=== PATIENT | female | born 1945 | race Two or more races ===

== ENCOUNTER 2025-04-18 14:55 | Inpatient (IN) | payer MEDICAID, SELFPAY ==
[2025-04-18] VITALS (9 sets, daily range): BP systolic 156–210; BP diastolic 90–111; PULSE 67–82; RESP 15–96; TEMP 36–37.2; O2SAT 94–96; BMI 31.3; BMI 25.4
--- NOTE | 2025-04-18 15:08 | XR_ITS ---
Examination: CT brain head without contrast. 2-D sagittal coronal reconstructions Date and time of exam:April 18, 2025, 1513 hrs., Comparison August 12, 2009. Indications: Stroke alert, onset focal neurologic deficit today CTDI: vol (mGy):47.8 DLP: (mGycm):919 Technique: Multiple CT axial sections of the brain have been obtained, 5 mm slice thickness. Contrast has not been administered. 2-D sagittal, coronal reconstructions have been obtained Low dose protocols were performed. One or more of the following dose reduction techniques were used; automated exposure control, adjustment of the mA and/or KV according to patient size, use of iterative reconstruction technique. Findings: No significant ventricular enlargement. Intra-axial or extra-axial hemorrhage density is not seen. No mass effect or midline shift Basal cisterns are not remarkable. Fourth ventricle is midline. Cranial vault intact. Impression: Negative for acute hemorrhage, mass effect or midline shift
--- NOTE | 2025-04-18 15:08 | XR_ITS ---
Examination: CTA carotids with intravenous contrast CTA brain, head with intravenous contrast. 2-D sagittal, coronal reconstructions. 3-D reconstructions. Exam date and time: April 18, 2025, 1530 hrs. Indications: Stroke alert, onset focal neurologic deficit today CTDI: vol (mGy) 29.6 DLP: (mGycm) 183 Technique: Multiple CTA axial brain, head carotid images post intravenous contrast injection 100 cc, [id number]. 2-D sagittal, coronal reconstructions. 3-D reconstructions, 3-D post processing including vascular maximum intensity projection images. Low dose protocols were performed. One or more of the following dose reduction techniques were used; automated exposure control, adjustment of the mA and/or KV according to patient size, use of iterative reconstruction technique. Findings: Multiple bilateral thyroid nodules No visualized pulmonary artery emboli. No significant stenoses common carotid arteries carotid bifurcations or internal carotid arteries. Dominant left vertebral artery in the neck with no critical stenoses Intracranial vertebral arteries basilar artery and posterior cerebral branches fill with no large vessel occlusions M1 segments middle cerebral arteries middle cerebral artery trifurcation vessels anterior cerebral arteries fill with no large vessel occlusions. Impression: No significant neck arterial stenoses. No cerebral large vessel arterial occlusions or thrombus
--- NOTE | 2025-04-18 15:08 | EKG_ITS ---
[facility] Test Date: 2025-04-18 Pat Name: NARA RASMUSSEN Department: Room: - Gender: Female Padder: : 1945 Requested By: Merritt Mayorga Order Number: [id number] Reading MD: Merritt Mayorga Measurements Intervals [place] Rate: 79 P: 29 TX: 179 QRS: -46 QRSD: 96 T: 48 QT: 359 QTc: 412 Interpretive Statements SINUS RHYTHM LEFT ANTERIOR FASCICULAR BLOCK [QRS AXIS <= -45, QR IN I, RS IN II] VOLTAGE CRITERIA FOR LVH [MEETS CRITERIA IN ONE OF: R(aVL), S(V1), R(V5), R(V5/V6)+S(V1)] NONSPECIFIC T-WAVE ABNORMALITY Compared to ECG 09/07/2023 10:28:35 Left anterior fascicular block now present Left-axis deviation no longer present T-wave abnormality still present /store/S0/[id number].pdf
--- NOTE | 2025-04-18 15:08 | XR_ITS ---
Examination: AP chest single view Technique one AP portable upright chest single view Date and time: April 18, 2025, 1548 hrs., Comparison August 12, 2009. Indications: Stroke alert Findings: Mild heart failure. Moderate enlargement cardiac contour. Prominent vascular congestion with early septal edema at the lung bases Impression: Mild heart failure.
--- NOTE | 2025-04-18 15:09 | PD.EDNEURO ---
Neuro Symptoms Deficit-RME/HPI General Chief Complaint: Neuro Symptoms/Deficit Stated Complaint: CXP/DIZZY/BURRED VISION/NAUSEA ON/OFF SINCE 1100 Time Seen by Provider: 04/18/25 15:08 Arrival date/time: 04/18/25 14:55 RME / HPI RME / HPI Narrative: 80-year-old female patient with significant history of hypertension diabetes mellitus, currently not taking any blood thinner, came in for evaluation regarding sudden onset of dizziness off balance blurry vision severity moderate. Last well-known time was 11:00 this morning. Patient also complained of left-sided chest pain which according to the patient going away already. Denies any fall denies any fever denies any other complaints. Patient is able to ambulate however I noticed some limping. Denies any upper extremity weakness. Related Data Home Medications ?Medication ?Instructions ?Recorded ?Confirmed atorvastatin 20 mg tablet 20 mg PO QPM 09/07/23 11/29/23 latanoprost 0.005 % eye drops 1 drp ophthalmic (eye) QDAY 09/07/23 11/29/23 (Xalatan) losartan 50 mg tablet 50 mg PO QDAY 09/07/23 11/29/23 metformin 500 mg tablet,extended 500 mg PO BID 09/07/23 11/29/23 release 24 hr hydroxyzine HCl 25 mg tablet 25 mg PO HS 11/29/23 11/29/23 Allergies Allergy/AdvReac Type Severity Reaction Status Date / Time No Known Allergies Allergy Verified 04/18/25 15:02 Review of Systems Review of Systems Narrative Review of Systems: Review of system reviewed and within normal limits except mentioned in HPI ED Exam Narrative Physical exam: VITAL SIGNS: Reviewed. GENERAL APPEARANCE: Alert and interactive, follows commands, no acute distress, HEAD AND FACE: Non-traumatic. ENT: PERRL, pink conjunctivitis, eyelid no trauma, Mucous membrane moist. NECK: Supple, nontender, no nuchal rigidity. CHEST: No tenderness, no crepitus, no paradoxical movement, no retractions. LUNGS: Clear, well ventilated, symmetric, no rales, no wheezing, no ronchi, no stridor, good breath sounds bilaterally. HEART: Regular rate, regular rhythm, no murmur, no gallops. ABDOMEN: Soft, positive bowel sounds, nondistended, no guarding, nontender, no rebound, no masses, RECTAL: Deferred. GENITAL: Deferred. NEUROLOGICAL: Gross motor function intact sensory function intact, Appropriate for age. MUSCULOSKELETAL: low back nontender, full range of motion. EXTREMITIES: Nontender, full range of motion. SKIN: Color pink, dry, no rash, no lacerations, no abrasions, no contusions. LYMPHATICS: Deferred. Course Quality Measures none Orders Category Date Time Status Bedside Blood Glucose NOW Care 04/18/25 15:08 Completed COVID-19 Screening Questionnaire NOW Care 04/18/25 17:34 Ordered Lunchroom Worker NOW Care 04/18/25 15:08 Active Continuous Pulse Oximetry NOW Care 04/18/25 15:08 Completed Decision to Admit X1 Care 04/18/25 17:34 Ordered EKG (ED ONLY) *Do not use* NOW Care 04/18/25 15:08 Completed In and Out Catheter NEEDED Care 04/18/25 15:08 Active Insert IV NOW Care 04/18/25 15:08 Active NIH Stroke Scale now Care 04/18/25 15:08 Active NPO NOW Care 04/18/25 15:08 Active Nurse Swallow Screen x1 Care 04/18/25 15:08 Active Consult to Neurology / Tele-Neurology Routine Cons 04/18/25 15:[address] angio stroke protocol Stat Exams 04/18/25 15:[address] stroke protocol Stat Exams 04/18/25 15:08 Completed EKG (ED Only) Stat Exams 04/18/25 15:08 Draft XR chest 1V portable Stat Exams 04/18/25 15:08 Completed CBC Stat Lab 04/18/25 15:17 Completed Comprehensive Metabolic Panel Stat Lab 04/18/25 15:17 Completed Drug Screen,Urine Stat Lab 04/18/25 16:00 Completed HCG Titer if Positive Stat Lab 04/18/25 15:17 Completed Magnesium Stat Lab 04/18/25 15:17 Completed Partial Thromboplastin Time Stat Lab 04/18/25 15:17 Completed Prothrombin Time with INR Stat Lab 04/18/25 15:17 Completed Troponin I Stat Lab 04/18/25 15:17 Completed Urinalysis, C/S if Indicated Stat Lab 04/18/25 16:00 Completed Aspirin [Ecotrin] Med 04/18/25 16:30 Discontinued 81 mg PO X1 ONE Labetalol IV [Trandate IV] Med 04/18/25 15:08 Active 10 mg IVP Q15M PRN Ondansetron Inj [Zofran Inj] Med 04/18/25 15:08 Active 4 mg IVP Q4HR PRN Oxygen Delivery NOW RT 04/18/25 15:08 Active Vital Signs Vital signs: Vital Signs Temperature 98.2 F 04/18/25 15:05 Pulse Rate 82 04/18/25 15:05 Respiratory Rate 18 04/18/25 15:05 Blood Pressure 192/106 H 04/18/25 15:05 Pulse Oximetry (%) 95 04/18/25 15:05 Oxygen Delivery Method Room Air 04/18/25 15:05 Neuro Symptoms / Deficit MDM Narrative MDM Narrative:: 80-year-old female patient with significant history of hypertension diabetes mellitus, currently not taking any blood thinner, came in for evaluation regarding sudden onset of dizziness off balance blurry vision severity moderate. Last well-known time was 11:00 this morning. Patient also complained of left-sided chest pain which according to the patient going away already. Denies any fall denies any fever denies any other complaints. Patient is able to ambulate however I noticed some limping. Denies any upper extremity weakness. Stroke alert was initiated right away on my initial evaluation. EKG showed sinus rhythm, ventricular rate of 79 bpm, no ST segment elevation depression noted. I was able to talk to teleneurologist, who told me that patient is a candidate for TNKase. Patient needs to be given 81 mg of aspirin. And then admit for stroke workup Plan of care discussed with family, who agrees to be admitted for further management. Spoke with hospitalist, who admitted the patient. Patient data External records reviewed:: None Clinical information provided by:: patient Social determinants that could affect healthcare access:: none Patient has the following chronic illnesses:: Hypertension diabetes mellitus How is presenting disease/condition affected by chronic disease/condition?: exacerbated by Evaluation data The following diagnostics were reviewed and interpreted by me:: lab results and radiology exam(s) Lab and/or radiology exams considered but not ordered:: None Interpretation Summary: CT scan of the head came back unremarkable CTa head and neck, all came back normal. Laboratory workup all came back normal except for slightly elevated troponin of 0.053. On my initial evaluation patient is not having any chest pain. Currently patient is not having any chest pain. Medications / Prescriptions Medications or Prescriptions considered but not ordered:: None Medication administrations:: Medication Administration History Labetalol HCl (Labetalol Inj 5 Mg/Ml Vial 20 Ml) 10 mg IVP Q15M PRN PRN Reason: HYPER Ondansetron HCl (Ondansetron Inj 2 Mg/Ml Inj 2 Ml) 4 mg IVP Q4HR PRN PRN Reason: NAUSEA OR VOMITING Stop: 05/18/25 15:07 Discontinued Medications Aspirin (Aspirin Ec 81 Mg Tabec) 81 mg PO X1 ONE Stop: 04/18/25 16:31 Last Admin: 04/18/25 17:04 Dose: 81 mg Documented By: DELICIA Aspirin Consultations Consultation(s) initiated? (list below): No Diagnosis Neuro Differential Diagnosis: cerebrovascular accident and transient cerebral ischemia Most likely diagnosis given after review of the tests above:: Strokelike symptoms Admission Indicated Admission indicated?: indicated Admission Request Was there a request for admission?: Yes Admission Attestation Admission request attestation: Discussed case with [Dr Evans] from Hospitalist service regarding admission. Discussed patients ED course, exam findings, labs, and radiology results. The Hospitalist [agrees to accept the patient for admission. Disposition Plan Disposition Plan: Admit Discharge Plan Plan Patient Disposition: Admit Acute Care w/in Hospital Discharge Disposition comment: Stable Prescriptions/Referrals Prescriptions/Med Rec: No Action losartan 50 mg Tablet 50 mg PO QDAY latanoprost [Xalatan] 0.005 % Drops 1 drp OPHTHALMIC (EYE) QDAY atorvastatin 20 mg Tablet 20 mg PO QPM metformin 500 mg Tablet Extended Release 24 Hr 500 mg PO BID hydroxyzine HCl 25 mg Tablet 25 mg PO HS Referrals: Regis Uribe PA-C [Primary Care Provider] - In 1 week Problem List Clinical Impression: Stroke-like symptom Patient/Caregiver Discharge Instructions Print Language: Luxembourgish Stand Alone Forms: [employer] Award Info., Patient Portal Info Letter
[2025-04-18 15:24] LABS: Basophils # (Auto) 0.1 Thou/mm3 (0.0-0.2); Basophils % (Auto) 1 % (0-2.5); Eosinophils # (Auto) 0.1 Thou/mm3 (0.0-0.5); Eosinophils % (Auto) 1 % (0-10); Hematocrit 42.4 % (36.0-46.0); Hemoglobin 13.6 g/dL (12.0-16.0); Immature Granulocytes Auto 0.05 Thou/mm3 (0.00-0.00); Lymphocytes # (Auto) 1.7 Thou/mm3 (1.0-4.8); Lymphocytes % (Auto) 21 % (10-50); Mean Corpuscular HGB Conc 32.1 g/dl (31.0-37.0); Mean Corpuscular Hemoglobin 27.8 pg (25.0-35.0); Mean Corpuscular Volume 87 fL (80-100); Monocytes # (Auto) 0.7 Thou/mm3 (0.0-0.8); Monocytes % (Auto) 8 % (0-12); Neutrophils # (Auto) 5.4 Thou/mm3 (1.8-7.7); Neutrophils % (Auto) 68 % (37-80); Nucleated Red Blood Cell # 0.00 Thou/mm3 (0.00-0.00); Nucleated Red Blood Cell % 0 /100 WBC (0); Platelet Count 185 Thou/mm3 (140-440); RDW Standard Deviation 42.3 fL (36.4-46.3); Red Blood Count 4.89 Miln/mm3 (4.00-5.20); White Blood Count 8.0 Thou/mm3 (3.6-11.0)
[2025-04-18 15:41] LABS: HCG Titer if Positive Negative; INR 1.0 (0.9-1.3); Partial Thromboplastin Time 26.5 Seconds (22.0-36.0); Prothrombin Time 10.3 Seconds (9.0-12.2)
[2025-04-18 15:57] LABS: Alanine Aminotransferase 17 U/L (10-49); Albumin, Serum 4.7 gm/dL (3.4-4.8); Albumin/Globulin Ratio 1.7 (1.2-2.2); Alkaline Phosphatase 78 U/L (46-116); Anion Gap 8 (7-16); Aspartate Amino Transferase 23 U/L (0-34); BUN/Creatinine Ratio 17 Ratio (12-20); Bilirubin,Total 0.7 mg/dL (0.3-1.2); Blood Urea Nitrogen 12 mg/dL (9-23); Calcium 9.5 mg/dL (8.3-10.6); Calcium (Corrected) 9.5 mg/dL (8.5-10.1); Carbon Dioxide 29.2 mMol/L (20.0-31.0); Chloride 100 mMol/L (98-107); Creatinine (Component) 0.7 mg/dL (0.6-1.3); Estimated Creatinine Clearance 64.9 mL/min (>60); Globulin 2.7 gm/dL (2.3-3.5); Glucose 217 mg/dL (74-106); Magnesium 2.2 mg/dL (1.6-2.6); Osmolality,Calculated 280 (275-295); Potassium 4.9 mMol/L (3.4-5.1); Sodium 137 mMol/L (136-145); Total Protein 7.4 gm/dL (5.7-8.2); eGFR > 60 See Note
[2025-04-18 15:59] LABS: Troponin I 0.053 ng/mL (0.0-0.045)
--- NOTE | 2025-04-18 16:06 | ESCONSULT_ITS ---
Tele Neuro Consultation Consultation Date 04/18/25 Most Recent Vital Signs Last Vital Signs Temp 98.2 F 04/18/25 15:05 Pulse 77 04/18/25 15:40 Resp 15 04/18/25 15:40 BP 192/106 H 04/18/25 15:05 Pulse Ox 95 04/18/25 15:05 O2 Del Method Room Air 04/18/25 15:05 Laboratory-Coagulation Panel PT 10.3 Seconds (9.0-12.2) 04/18/25 15:17 INR 1.0 (0.9-1.3) 04/18/25 15:17 APTT 26.5 Seconds (22.0-36.0) 04/18/25 15:17 Consultation Narrative [facility] Patient Name:???NARA RASMUSSEN Date of :???1945 Identification Number:??? Date of Service:???04/18/2025 15:09:26 Diagnosis:?H53.8 - Blurred Vision ?R26.81 - Unsteady gait Impression: ?Onset of chest pain, dizziness, and blurred vision which does not improve with either eye covered in the in setting of severe hypertension. There are no persistent localizing neurological deficits on exam. Clinical presentation is most consistent with hypertensive emergency, though posterior circulation ischemia is also possible. IV thrombolysis was not recommended as her BP was >185/110 during my evaluation, as well as being outside treatment time window at the completion of CT head and NIHSS score testing. ? ?Recommendations: ?- Gradual BP reduction (~15% in first 24 hours) ?- ASA 81mg daily ?- MRI brain to evaluate for PRES versus ischemia ?- Chest pain eval per ED/primary team Our recommendations are outlined below. Recommendations: ? Stroke/Telemetry Floor ? Neuro Checks ? Bedside Swallow Eval ? DVT Prophylaxis ? IV Fluids, Normal Saline ? Head of Bed 30 Degrees ? Euglycemia and Avoid Hyperthermia (PRN Acetaminophen) ? Initiate or continue Aspirin 81 MG daily Sign Out: ? Discussed with Emergency Department Provider Advanced Imaging: Advanced imaging has been ordered. Results pending. Metrics: Last Known Well: 04/18/2025 11:00:00 Dispatch Time: 04/18/2025 15:09:26 Arrival Time: 04/18/2025 14:55:00 Initial Response Time: 04/18/2025 15:12:26Symptoms: dizziness. Initial patient interaction: 04/18/2025 15:18:19 NIHSS Assessment Completed: 04/18/2025 15:26:16Patient is not a candidate for Thrombolytic. Thrombolytic Medical Decision: 04/18/2025 15:26:35Patient was not deemed candidate for Thrombolytic because of following reasons: LKW outside 4.5 hr window. . other diagnosis suspected hypertensive emergency. CT Head: I personally reviewed all the CT images that were available to me and it showed: no acute pathology Primary Provider Notified of Diagnostic Impression and Management Plan on: 04/18/2025 16:00:29 History of Present Illness:Patient is a 80 year old Female. Patient was brought by private transportation with symptoms of dizziness. Patient is an 80-year-old woman presenting to the ED due to persistent left- sided chest pain and dizziness starting at 11am today. She reports that it feels like she is drunk and she also has blurred vision and nausea. She denies lateralized weakness/numbness, double vision, headache, speech/language changes. She denies recent illnesses or medication changes. She denies prior history of similar symptoms. She was markedly hypertensive on ED arrival. She was able to ambulate independently. Past Medical History: ?Hypertension ?Diabetes Mellitus ?Hyperlipidemia ?There is no history of Atrial Fibrillation ?There is no history of Stroke ?There is no history of Seizures Medications: No Anticoagulant use? No Antiplatelet use Reviewed EMR for current medications Other Medications Pertinent To Assessment Include: losartan, atorvastatin, metformin, hydroxyzine Allergies:? NKDA Social History: Smoking: No Alcohol Use: No Drug Use: No Family History: There is no family history of premature cerebrovascular disease pertinent to this consultation ROS : 14 Points Review of Systems was performed and was negative except mentioned in HPI. Past Surgical History: There Is No Surgical History Contributory To Today?s Visit Examination: BP(201/143),?Pulse(77),?Blood Glucose(217) 1A: Level of Consciousness - Alert; keenly responsive?+ 0 1B: Ask Month and Age - Both Questions Right?+ 0 1C: Blink Eyes & Squeeze Hands - Performs Both Tasks?+ 0 2: Test Horizontal Extraocular Movements - Normal?+ 0 3: Test Visual Chaves - No Visual Loss?+ 0 4: Test Facial Palsy (Use Grimace if Obtunded) - Normal symmetry?+ 0 5A: Test Left Arm Motor Drift - No Drift for 10 Seconds?+ 0 5B: Test Right Arm Motor Drift - No Drift for 10 Seconds?+ 0 6A: Test Left Leg Motor Drift - No Drift for 5 Seconds?+ 0 6B: Test Right Leg Motor Drift - No Drift for 5 Seconds?+ 0 7: Test Limb Ataxia (FNF/Heel-Benjamin) - No Ataxia?+ 0 8: Test Sensation - Normal; No sensory loss?+ 0 9: Test Language/Aphasia - Normal; No aphasia?+ 0 10: Test Dysarthria - Normal?+ 0 11: Test Extinction/Inattention - No abnormality?+ 0 NIHSS Score:?0 NIHSS Free Text :?non-sustained nystagmus on right horizontal gaze. Blurred vision, does not improve with either eye covered. No visual field loss Pre-Morbid Modified Wendell Scale: 0 Points = No symptoms at all Spoke with :?Merritt CAIN This consult was conducted in real time using interactive audio and video technology. Patient was informed of the technology being used for this visit and agreed to proceed. Patient located in hospital and provider located at home/office setting. Patient is being evaluated for possible acute neurologic impairment and high probability of imminent or life-threatening deterioration. I spent total of 57 minutes providing care to this patient, including time for face to face visit via telemedicine, review of medical records, imaging studies and discussion of findings with providers, the patient and/or family. Dr Lila Sweet [facility] For Inpatient follow-up with [facility] physician please call [facility] at . As we are not an outpatient service for any post hospital discharge needs please contact the hospital for assistance. If you have any questions for the [facility] physicians or need to reconsult for clinical or diagnostic changes please contact us via [facility] at . Signature :Blaze Sweet
[2025-04-18 16:09] LABS: Collection Type, Urine Clean Catch; Squamous Epithelial Cell,Urine 0 /hpf (0-5)
[2025-04-18 16:18] LABS: Bilirubin,Urine Negative (Negative); Blood,Urine Negative (Negative); Clarity,Urine Clear (Clear/Hazy); Color,Urine Colorless (Lt Yel-Yel); Culture Indicated,Urine Not Indicated; Glucose, Urine Negative (Negative); Ketones,Urine Negative (Negative); Leukocyte Esterase,Urine Negative (Negative); Nitrite,Urine Negative (Negative); PH,Urine 7.5 (5.0-7.0); Protein,Urine Negative (Neg - Trace); RBC,Urine 1 /hpf (0-3); Specific Gravity,Urine 1.021 (1.001-1.035); Urobilinogen,Urine Negative mg/dL (0.0-1.0); WBC,Urine 1 /hpf (0-5)
[2025-04-18 16:24] LABS: Amphetamine/Methamp Scrn,U Negative (Negative); Barbiturate Screen,Urine Negative (Negative); Benzodiazepines Screen,Urine Negative (Negative); Benzoylecgonine Screen, Ur Negative (Negative); Fentanyl Screen,Urine Negative (Negative); Opiate Screen,Urine Negative (Negative); THC Screen,Urine Negative (Negative)
[2025-04-18] MEDS: ASPIRIN EC 81 MG TABEC PO (17:04)
[2025-04-18] MEDS: LABETALOL INJ 5 MG/ML VIAL 20 ML 10 MG IVP (18:24)
--- NOTE | 2025-04-18 18:27 | ECHO_ITS ---
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 16 - 28 cm?/m? Ascending Aorta Diameter 3.2 cm M-MODE AV Cusp Separation MM 1.8 cm DOPPLER AV Peak Velocity 105.0 cm/s AV Peak Gradient 4.4 mmHg AV Mean Gradient 3.0 mmHg AV Velocity Time Integral 22.5 cm LVOT Peak Velocity 79.9 cm/s LVOT Peak Gradient 2.6 mmHg LVOT Velocity Time Integral 18.3 cm LVOT Cardiac Index 2038.7 cm?/min?m? AV Area Cont Eq vti 2.3 cm? AV Area Cont Eq pk 2.2 cm? MV Area PHT 4.6 cm? Mitral E Point Velocity 36.7 cm/s Mitral A Point Velocity 73.7 cm/s Mitral E to A Ratio 0.5 LV E' Lateral Velocity 8.7 cm/s Mitral E to LV E' Lateral Ratio 4.2 LV E' Septal Velocity 6.7 cm/s Mitral E to LV E' Septal Ratio 5.4 TR Peak Velocity 165.5 cm/s TR Peak Gradient 11.0 mmHg PV Peak Velocity 48.2 cm/s PV Peak Gradient 0.9 mmHg FINDINGS Left Ventricle Normal left ventricular size, wall thickness, systolic function.There is global left ventricular hypokinesis. There is grade I diastolic dysfunction of the left ventricle (impaired relaxation pattern). The ejection fraction is visually estimated at 50 %. Right Ventricle The right ventricle is normal in size and systolic function. Left Atrium The left atrial cavity size is mildly increased. Right Atrium The right atrium is normal by two-dimensional imaging, color flow and Doppler imaging with no structural abnormalities, no thrombus formation present. Atrial Septum The interatrial septum appears normal with no evidence of a shunt. Aorta The aorta is normal by two-dimensional, color flow and Doppler interrogation. Mitral Valve Mitral annular calcification. Aortic Valve Aortic valve sclerosis without stenosis. [id number] aortic valve regurgitation. Tricuspid Valve The tricuspid valve is normal by two-dimensional, color flow and Doppler interrogation. There is mild tricuspid valve regurgitation. Pulmonic Valve The pulmonic valve is not well visualized. There is no significant pulmonic valve regurgitation. Vessels The pulmonary artery appears normal. The inferior vena cava pulmonary and hepatic veins appear normal. Pericardium The pericardium is normal by two-dimensional imaging. There is no significant pericardial effusion. CONCLUSIONS Indication:CVA rule out Normal left ventricular size and function. Grade I diastolic dysunction. EF estimated at 50-55% The right ventricle is normal in size and systolic function. RVSP mildly elevated at 30-35 mm hg Mild dilated LA. mild MAC Mild Aortic valve sclerosis without stenosis. Mild aortic valve regurgitation and tricuspid regurgitation. No pericardial effusion. Consider RUBEN if high index of clinical suspicion. Roque Montalvo (Electronically Signed) Final Date: 21 April 2025 08:56
--- NOTE | 2025-04-18 18:43 | ESHP_ITS ---
<Statement entered by Sonia Zurita MD - 04/23/25 17:39> I reviewed above note and agree with findings and plans. I have also personally examined the patient with medicine team and went over assessment and plan with medical team including phd intern and resident physician. <Statement entered by Sushma Evans MD - 04/21/25 20:52> I discussed with and supervised the phd intern physician who took care of this patient. I personally saw and examined the patient and discussed the assessment and plan with the entire medicine team, including my attending Dr. Zurita, I agree with most of the assessment and plan as documented below Sushma Evans M.D. PGY-3 Disclaimer: Despite multiple revisions, due to the dictation software being used, the document bellow may not be free of grammatical errors including phonetic/typographic errors. However, this does not deter from our commitment to providing health care in the patient's best interest in mind. Documentation for date of: 04/18/25 HPI History of Present Illness Chief complaint: dizziness, gait instability History of present illness: Ms. Aguilar is an 80 year old woman who has a hx of HTN and T2DM not on insulin, who presented with c/c L chest pain and dizziness associated with blurred vision and gait instability. She states that she awoke this morning and was feeling fine. At 11AM she states that she started to feel like something was wrong. she felt strange and endorses having dizziness, feeling like she may fall down due to some weakness/ instability in her legs. She states that she has never had a feeling like this before so she sat down. she was unsure of what was causing her symptoms and was reluctant to come to the hospital. She states that she is unsure about whether she remembered to take her morning medications today. Her primary care provider is at [facility] She is acompanied by her daughter ROS Denies fevers, chills, nausea, vomiting endorses dizziness, blurred vision, gait instability, headache PMH: HTN, T2DM Meds Atorvastatin 20 mg qhs, metformin 500mg qd, losartan 50 surgical hx : prior abdominal surgery and bilateral cataract surgery social hx: lives alone and is independent of adl and idls ED course stroke alert activated VSS notable for elevated BP 192/106, hr wnl, rr wnl, afebrile EKG with nl sinus rhythm Labs notable for hgb a1c 7.6, troponin 0.053, triglycerides 418, HDL 37, LDL cant be calculated because>>triglycerides, tsh wnl, UA bland, UTox negative Pertinent imaging: - CT head Negative for acute hemorrhage, mass effect or midline shift - CTA head and neck No significant neck arterial stenoses. No cerebral large vessel arterial occlusions or thrombus Tx - ASA 81 - tele neuro consulted : no thrombinolytics indicated, outside the window. Review of Systems Review of Systems Narrative Review of Systems: as per hpi Past Medical History Surgical History OTHER SURGICAL HX: abdominal surgery, and eye surgery bilaterally for cataracts. Exam Vital Signs Temp Pulse Resp BP Pulse Ox O2 Del Method 98.7 F 81 15 163/96 H 95 Room Air 04/18/25 18:30 04/18/25 18:30 04/18/25 18:30 04/18/25 18:30 04/18/25 18:30 04/18/25 18:30 Narrative Exam GENERAL: no acute distress, AAO x3, comfortably laying in bed HEENT: Head AT/ NC. Mucous membranes moist. PERRL. (pt reports increased lacrimation 2/2 cataract surgeries ) NECK: Supple, no lymphadenopathy, no carotid bruits. CARDIOVASCULAR: RRR. Normal S1/S2, No m/r/g. No pitting edema of bilateral LEs. RESPIRATORY: CTAB. No wheezing, rhonchi, crackles. GASTROINTESTINAL: Abdomen soft, non tender no palpable masses. Bowel sounds present MUSCULOSKELETAL:? No cyanosis or edema, no visible joint swelling. NEUROLOGICAL: CN II-XII grossly intact. No focal deficits. Sensation intact, symmetric., nl finger nose finger, nl heel knee vernon. gait was not assessed. 5/5 strength in upper and lower extremities. PSYCHIATRIC: Awake and alert, not agitated, normal mood and affect. SKIN: No obvious rashes, no jaundice, normal turgor. Results: Labs 04/18/25 15:17 04/18/25 15:17 Labs: Short CBC 04/18/25 Range/Units 15:17 WBC 8.0 (3.6-11.0) Thou/mm3 Hgb 13.6 (12.0-16.0) g/dL Hct 42.4 (36.0-46.0) % Plt Count 185 (140-440) Thou/mm3 BMP 04/18/25 15:17 Sodium 137 Potassium 4.9 Chloride 100 Carbon Dioxide 29.2 BUN 12 Creatinine 0.7 Glucose 217 H Calcium 9.5 Cardiac Enzymes 04/18/25 Range/Units 15:17 Troponin I 0.053 H* (0.0-0.045) ng/mL Liver Function 04/18/25 Range/Units 15:17 Total Bilirubin 0.7 (0.3-1.2) mg/dL AST 23 (0-34) U/L ALT 17 (10-49) U/L Alkaline Phosphatase 78 (46-116) U/L Albumin 4.7 (3.4-4.8) gm/dL Urine 04/18/25 Range/Units 16:00 Urine Color Colorless A (Lt Yel-Yel) Urine Clarity Clear (Clear/Hazy) Urine pH 7.5 H (5.0-7.0) Ur Specific [place] 1.021 (1.001-1.035) Urine Protein Negative (Neg - Trace) Urine Glucose (UA) Negative (Negative) Quality Measures Quality Measures VTE prophylaxis and stroke Suspected type of Stroke: Unknown at this time Last known well (date): 04/18/25 Last known well (time): 11:00 Tenecteplase given: Reason(s) Tenecteplase not given: Outside the time window not given Rehab services: PT evaluation ordered and Speech Language Pathology eval ordered VTE Prophylaxis: mechanical Antithrombotic by day 2:: not indicated (describe) Statin ordered: >75 y/o moderate or high intensity dose Anticoagulation ordered for A-fib or flutter (current or hx): not indicated Advance care planning discussed with:: patient and child Medications Home Medications and Allergies Home Medications ?Medication ?Instructions ?Recorded ?Confirmed ?Type atorvastatin 20 mg tablet 20 mg PO QPM 09/07/23 History latanoprost 0.005 % eye drops 1 drp ophthalmic (eye) Q DAY 09/07/23 11/29/23 History (Xalatan) losartan 50 mg tablet 50 mg PO QDAY 09/07/2311/28 History metformin 500 mg tablet,extended 500 mg PO BID 4 11/29/23 History release 24 hr hydroxyzine HCl 25 mg tablet 25 mg PO HS 11/29/23 05/0 09/22 History Allergies Allergy/AdvReac Type Severity Reaction Status Date / Time No Known Allergies Allergy Verified 04/18/25 15:02 Visit Medications Acetaminophen (Acetaminophen 325 Mg Tablet) 650 mg PO Q6H PRN PRN Reason: Fever >101.5 Stop: 05/18/25 18:18 Acetaminophen (Acetaminophen Supp 650 Mg Supp) 650 mg OR Q6H PRN PRN Reason: PAIN SCALE 1-3 (mild Stop: 05/18/25 18:18 Aspirin (Aspirin Ec 81 Mg Tabec) 81 mg PO DAILY MICHELLE Stop: 05/19/25 08:59 Docusate Sodium (Docusate Sod 100 Mg Capsule) 100 mg PO QDAY PRN; Protocol PRN Reason: CONSTIPATION Stop: 05/18/25 18:18 Labetalol HCl (Labetalol Inj 5 Mg/Ml Vial 20 Ml) 10 mg IVP Q15M PRN PRN Reason: HYPER Last Admin: 04/18/25 18:24 Dose: 10 mg Ondansetron HCl (Ondansetron Inj 2 Mg/Ml Inj 2 Ml) 4 mg IVP Q4HR PRN PRN Reason: NAUSEA OR VOMITING Stop: 05/18/25 15:07 Discontinued Medications Aspirin (Aspirin Ec 81 Mg Tabec) 81 mg PO X1 ONE Stop: 04/18/25 16:31 Last Admin: 04/18/25 17:04 Dose: 81 mg Assessment & Plan Plan Ms. Aguilar is an 80 year old woman who has a hx of HTN and T2DM not on insulin, HLD, who presented with c/c L chest pain and dizziness associated with blurred vision and gait instability who was admitted for stroke rule out Dizziness and ataxia PRES vs Acute ischemic Stroke rule out DDX hypertensive emergency vs pres vs cerebellar stroke given pt symptoms , pt doesnt remember if she took bp meds, however bp could be elevated 2/2 ischemia Patient was not deemed a candidate for tPA because last known well was greater than 4.5 hours NIHSS score of 0 Dx * NCHCT Negative for acute hemorrhage, mass effect or midline shift * CTA head and neck: No significant neck arterial stenoses No cerebral large vessel arterial occlusions or thrombus * Brain MRI- pending * Echo- pending * A1c 7.6 * TSH wnl * Lipid panel, elevated triglycerides, low hdl * Every 4 hours neuro checks * Telemetry neurology consulted recommends; admission and asa 81 qd * In-house neurologist consulted: Dr. Evans, appreciate recs * Consult physical therapy * Consult speech, passed bedisde nurse swallow Tx * ASA 81 mg daily * Atorvastatin 40 mg at bedtime * APAP 650 mg every 6hrs as needed * Labetalol 10 mg every as needed for SBP greater than 220/110 * Keep euglycemic * Head a bed 30 degrees * Permissive hypertension in the first 48 hours continue to hold home antihypertensives Hypertensive emergency HTN - HOLD home meds losartan 50 - allow permissive htn in setting of CVA rule out Troponinemia - EKG with nl sinus - continue trending trops, q6hr till peaked 0.053 --> T2DM - well controlled A1c 7.6 not on insulin at home. - ISS - hold home metformin 500 xr qd - diet carb consistent HLD home dose atorvastatin 20 qhs - start atorvastatin 40 qhs given c/f stroke and elevated triglycerides on lipid panel Dispo:tele, pending mri brain Diet: carb consistent Bowel Reg: docusate prn VTE ppx: scd GI ppx: not indicated Code status: DNR/DNI Plan discussed with Dr Evans, and Dr. Yudith Bennett MD PGY1
[2025-04-18 18:52] LABS: Glucose Estimated Average 171 mg/dL (80-131); Hemoglobin A1C 7.6 % Hgb (4.8-6.0)
[2025-04-18 18:54] LABS: Cardiac Risk Estimate 4.4 RATIO (3.7-5.6); Cholesterol 163 mg/dL (132-200); HDL Cholesterol 37 mg/dL (40-60); Thyroid Stimulating Hormone 3.01 uIU/mL (0.55-4.78); Triglycerides 418 mg/dL (30-150)
[2025-04-18] MEDS: ATORVASTATIN CALCIUM 20 MG TABLET 40 MG PO (21:01)
[2025-04-18 21:18] LABS: Troponin I 0.046 ng/mL (0.0-0.045)
[2025-04-19] VITALS (7 sets, daily range): BP systolic 136–188; BP diastolic 86–98; PULSE 60–91; RESP 14–23; TEMP 36.1–36.8; O2SAT 93–98; BMI 26.2
[2025-04-19 02:17] LABS: Basophils # (Auto) 0.1 Thou/mm3 (0.0-0.2); Basophils % (Auto) 1 % (0-2.5); Eosinophils # (Auto) 0.1 Thou/mm3 (0.0-0.5); Eosinophils % (Auto) 1 % (0-10); Hematocrit 42.5 % (36.0-46.0); Hemoglobin 13.9 g/dL (12.0-16.0); Immature Granulocytes Auto 0.04 Thou/mm3 (0.00-0.00); Lymphocytes # (Auto) 2.2 Thou/mm3 (1.0-4.8); Lymphocytes % (Auto) 28 % (10-50); Mean Corpuscular HGB Conc 32.7 g/dl (31.0-37.0); Mean Corpuscular Hemoglobin 28.3 pg (25.0-35.0); Mean Corpuscular Volume 86 fL (80-100); Monocytes # (Auto) 0.8 Thou/mm3 (0.0-0.8); Monocytes % (Auto) 10 % (0-12); Neutrophils # (Auto) 4.5 Thou/mm3 (1.8-7.7); Neutrophils % (Auto) 59 % (37-80); Nucleated Red Blood Cell # 0.00 Thou/mm3 (0.00-0.00); Nucleated Red Blood Cell % 0 /100 WBC (0); Platelet Count 163 Thou/mm3 (140-440); RDW Standard Deviation 42.4 fL (36.4-46.3); Red Blood Count 4.92 Miln/mm3 (4.00-5.20); White Blood Count 7.6 Thou/mm3 (3.6-11.0)
[2025-04-19 02:36] LABS: Alanine Aminotransferase 16 U/L (10-49); Albumin, Serum 4.7 gm/dL (3.4-4.8); Albumin/Globulin Ratio 1.6 (1.2-2.2); Alkaline Phosphatase 75 U/L (46-116); Anion Gap 9 (7-16); Aspartate Amino Transferase 20 U/L (0-34); BUN/Creatinine Ratio 13 Ratio (12-20); Bilirubin,Total 0.8 mg/dL (0.3-1.2); Blood Urea Nitrogen 8 mg/dL (9-23); Calcium 9.6 mg/dL (8.3-10.6); Calcium (Corrected) 9.6 mg/dL (8.5-10.1); Carbon Dioxide 27.3 mMol/L (20.0-31.0); Chloride 103 mMol/L (98-107); Creatinine (Component) 0.6 mg/dL (0.6-1.3); Estimated Creatinine Clearance 75.8 mL/min (>60); Globulin 2.9 gm/dL (2.3-3.5); Glucose 131 mg/dL (74-106); Magnesium 2.1 mg/dL (1.6-2.6); Osmolality,Calculated 277 (275-295); Phosphorous 3.2 mg/dL (2.4-5.1); Potassium 4.1 mMol/L (3.4-5.1); Sodium 139 mMol/L (136-145); Total Protein 7.6 gm/dL (5.7-8.2); Troponin I 0.028 ng/mL (0.0-0.045); eGFR > 60 See Note
[2025-04-19 08:36] LABS: Troponin I < 0.020 ng/mL (0.0-0.045)
[2025-04-19] MEDS: ASPIRIN EC 81 MG TABEC PO (09:48)
--- NOTE | 2025-04-19 10:05 | CHAP ---
Patient was visited by the Spiritual Care Volunteer who prayed for them. (Volunteer was in the hospital 09:12-10:05)
--- NOTE | 2025-04-19 10:43 | ESPR_ITS ---
<Statement entered by Sonia Zurita MD - 04/23/25 17:40> I reviewed above note and agree with findings and plans. I have also personally examined the patient with medicine team and went over assessment and plan with medical team including medical intern and resident physician. <Statement entered by Annika Belcher MD - 04/19/25 14:26> Patient examined at bedside. Has no major complaints states that she is feeling better with resolution of her dizziness and ataxia. A1c was 7.6. Stroke workup including CT head and CTA head and neck negative. She is pending echo and brain MRI. Will continue with aspirin 81 mg daily, atorvastatin 40 mg daily, and SSI. Hypertensive emergency has resolved with stable blood pressures. Anticipate discharge next 24-48 hrs pending final imaging and neurology recommendations. The patient's management plan was discussed with my attending physician Dr. Zurita. Annika Belcher, PGY-2 Documentation for date of: 04/19/25 Subjective Subjective Interval history: Ms. Aguilar is an 80 year old woman who has a hx of HTN and T2DM not on insulin, HLD, who presented with c/c L chest pain and dizziness associated with blurred vision and gait instability who was admitted for stroke rule out 04/19/2025: Patient seen and examined at bedside, her son is present. MRI is not available on sunday. pt is pending mri and echo. neuroimaging is negative to date, pt continues to endorse some weakness/instability when walking to transfer to the toilet. no residual deficits on exam. PT evaluation states that she is independent and no further evaluation needed, independent ambulation without assistive devices. Speech Eval completed, cleared. Exam Vital Signs Temp Pulse Resp BP Pulse Ox O2 Del Method 97.7 F 78 22 H 164/97 H 95 Room Air 04/19/25 07:59 04/19/25 08:00 04/19/25 07:59 04/19/25 07:59 04/19/25 07:59 04/19/25 07:59 Narrative Exam GENERAL: no acute distress, AAO x3, comfortably laying in bed HEENT: Head AT/ NC. Mucous membranes moist. PERRL. NECK: Supple, no lymphadenopathy, no carotid bruits. CARDIOVASCULAR: RRR. Normal S1/S2, No m/r/g. No pitting edema of bilateral LEs. RESPIRATORY: CTAB. No wheezing, rhonchi, crackles. GASTROINTESTINAL: Abdomen soft, non tender no palpable masses. Bowel sounds present MUSCULOSKELETAL:? No cyanosis or edema, no visible joint swelling. NEUROLOGICAL: CN II-XII grossly intact. No focal deficits. Sensation intact, symmetric., nl finger nose finger, nl heel knee vernon. gait was assessed by pt, independent without AD 5/5 strength in upper and lower extremities. PSYCHIATRIC: Awake and alert, not agitated, normal mood and affect. SKIN: No obvious rashes, no jaundice, normal turgor. Objective Labs 04/19/25 02:04 04/19/25 02:04 Labs: Laboratory Results - last 24 hr 04/18/25 04/18/25 04/18/25 15:17 16:00 20:28 WBC 8.0 RBC 4.89 Hgb 13.6 Hct 42.4 MCV 87 MCH 27.8 MCHC 32.1 RDW Std Deviation 42.3 Plt Count 185 Neut % (Auto) 68 Lymph % (Auto) 21 [place] % (Auto) 8 Eos % (Auto) 1 Baso % (Auto) 1 Neut # (Auto) 5.4 Lymph # (Auto) 1.7 [place] # (Auto) 0.7 Eos # (Auto) 0.1 Baso # (Auto) 0.1 Immature Gran # (Auto) 0.05 H Absolute Nucleated RBC 0.00 Immature Gran % 1 H Nucleated RBC % 0 PT 10.3 INR 1.0 APTT 26.5 Sodium 137 Potassium 4.9 Chloride 100 Carbon Dioxide 29.2 Anion Gap 8 BUN 12 Creatinine 0.7 Estim Creat Clear Calc 64.9 eGFR > 60 BUN/Creatinine Ratio [address] Glu mg/dL 171 H Hemoglobin A1c 7.6 H Calculated Osmolality 280 Calcium 9.5 Corrected Calcium 9.5 Phosphorus Magnesium 2.2 Total Bilirubin 0.7 AST 23 ALT 17 Alkaline Phosphatase 78 Troponin I 0.053 H* 0.046 H* Total Protein 7.4 Albumin 4.7 Globulin 2.7 Albumin/Globulin Ratio 1.7 Triglycerides 418 H Cholesterol 163 LDL Cholesterol, Calc TNP HDL Cholesterol 37 L Cholesterol/HDL Ratio 4.4 TSH 3.01 Ur Collection Type Clean Catch Urine Color Colorless A Urine Clarity Clear Urine pH 7.5 H Ur Specific [place] 1.021 Urine Protein Negative Urine Glucose (UA) Negative Urine Ketones Negative Urine Blood Negative Urine Nitrite Negative Urine Bilirubin Negative Urine Urobilinogen (Auto) Negative Ur Leukocyte Esterase Negative Urine RBC 1 Urine WBC 1 Ur Squamous Epith Cells 0 Urine Bacteria None Ur Culture Indicated? Not Indicated Urine Opiates Screen Negative Urine Fentanyl Screen Negative Ur Barbiturates Screen Negative U Amphetamin/Meth Scrn Negative U Benzodiazepines Scrn Negative U Cocaine Metab Screen Negative U Marijuana (THC) Screen Negative HCG (Qual) Negative 04/19/25 04/19/25 02:04 07:31 WBC 7.6 RBC 4.92 Hgb 13.9 Hct 42.5 MCV 86 MCH 28.3 MCHC 32.7 RDW Std Deviation 42.4 Plt Count 163 Neut % (Auto) 59 Lymph % (Auto) 28 [place] % (Auto) 10 Eos % (Auto) 1 Baso % (Auto) 1 Neut # (Auto) 4.5 Lymph # (Auto) 2.2 [place] # (Auto) 0.8 Eos # (Auto) 0.1 Baso # (Auto) 0.1 Immature Gran # (Auto) 0.04 H Absolute Nucleated RBC 0.00 Immature Gran % 1 H Nucleated RBC % 0 PT INR APTT Sodium 139 Potassium 4.1 D Chloride 103 Carbon Dioxide 27.3 Anion Gap 9 BUN 8 L Creatinine 0.6 Estim Creat Clear Calc 75.8 eGFR > 60 BUN/Creatinine Ratio 13 [address]ucose [address] Glu mg/dL Hemoglobin A1c Calculated Osmolality 277 Calcium 9.6 Corrected Calcium 9.6 Phosphorus 3.2 Magnesium 2.1 Total Bilirubin 0.8 AST 20 ALT 16 Alkaline Phosphatase 75 Troponin I 0.028 < 0.020 Total Protein 7.6 Albumin 4.7 Globulin 2.9 Albumin/Globulin Ratio 1.6 Triglycerides Cholesterol LDL Cholesterol, Calc HDL Cholesterol Cholesterol/HDL Ratio TSH Ur Collection Type Urine Color Urine Clarity Urine pH Ur Specific [place] Urine Protein Urine Glucose (UA) Urine Ketones Urine Blood Urine Nitrite Urine Bilirubin Urine Urobilinogen (Auto) Ur Leukocyte Esterase Urine RBC Urine WBC Ur Squamous Epith Cells Urine Bacteria Ur Culture Indicated? Urine Opiates Screen Urine Fentanyl Screen Ur Barbiturates Screen U Amphetamin/Meth Scrn U Benzodiazepines Scrn U Cocaine Metab Screen U Marijuana (THC) Screen HCG (Qual) Quality Measures Quality Measures VTE prophylaxis and stroke Suspected type of Stroke: Unknown at this time Last known well (date): 04/18/25 Last known well (time): 11:00 Tenecteplase given: Reason(s) Tenecteplase not given: Outside the time window not given Rehab services: PT evaluation ordered and Speech Language Pathology eval ordered VTE Prophylaxis: mechanical Antithrombotic by day 2:: not indicated (describe) Statin ordered: >75 y/o moderate or high intensity dose Anticoagulation ordered for A-fib or flutter (current or hx): not indicated Advance care planning discussed with:: patient and child Assessment & Plan Assessment Current Active Medications: Generic Name Dose Route Start Last Admin Trade Name Freq PRN Reason Stop Dose Admin Acetaminophen 650 mg 04/18/25 18:19 Acetaminophen 325 Mg Tablet PO 05/18/25 18:18 Q6H PRN Fever >101.5 Acetaminophen 650 mg 04/18/25 18:19 Acetaminophen Supp 650 Mg Supp MO 05/18/25 18:18 Q6H PRN PAIN SCALE 1-3 (mild Aspirin 81 mg 04/19/25 09:00 04/19/25 09:48 Aspirin Ec 81 Mg Tabec PO 05/19/25 08:59 81 mg DAILY MICHELLE Administration Atorvastatin Calcium 40 mg 04/18/25 21:00 04/18/25 21:01 Atorvastatin Calcium 20 Mg Tablet PO 05/18/25 20:59 40 mg HS MICHELLE Administration Docusate Sodium 100 mg 04/18/25 18:19 Docusate Sod 100 Mg Capsule PO 05/18/25 18:18 QDAY PRN CONSTIPATION Protocol Labetalol HCl 10 mg 04/18/25 19:22 Labetalol Inj 5 Mg/Ml Vial 20 Ml IVP Q15M PRN SBP> 220, DBP>110 Ondansetron HCl 4 mg 04/18/25 15:08 Ondansetron Inj 2 Mg/Ml Inj 2 Ml IVP 05/18/25 15:07 Q4HR PRN NAUSEA OR VOMITING Plan Ms. Aguilar is an 80 year old woman who has a hx of HTN and T2DM not on insulin, HLD, who presented with c/c L chest pain and dizziness associated with blurred vision and gait instability who was admitted for stroke rule out Dizziness and ataxia - resolved PRES vs Acute ischemic Stroke rule out DDX hypertensive emergency vs pres vs cerebellar stroke given pt symptoms , pt doesnt remember if she took bp meds, however bp could be elevated 2/2 ischemia Patient was not deemed a candidate for tPA because last known well was greater than 4.5 hours NIHSS score of 0 Blood pressure is resolving SBP 130s Dx NCHCT Negative for acute hemorrhage, mass effect or midline shift CTA head and neck: No significant neck arterial stenoses No cerebral large vessel arterial occlusions or thrombus Brain MRI- pending (not available on sunday) Echo- pending A1c 7.6 TSH wnl Lipid panel, elevated triglycerides, low hdl Every 4 hours neuro checks Telemetry neurology consulted recommends; admission and asa 81 qd In-house neurologist consulted: Dr. Evans, appreciate recs Tx ASA 81 mg daily Atorvastatin 40 mg at bedtime APAP 650 mg every 6hrs as needed Labetalol 10 mg every as needed for SBP greater than 220/110 Keep euglycemic Head a bed 30 degrees Permissive hypertension in the first 24- 48 hours continue to hold home antihypertensives Hypertensive emergency HTN - HOLD home meds losartan 50 - allow permissive htn in setting of CVA rule out Troponinemia - resolved - EKG with nl sinus - continue trending trops, q6hr till peaked 0.053 T2DM - well controlled A1c 7.6 not on insulin at home. - ISS - hold home metformin 500 xr qd - diet carb consistent HLD home dose atorvastatin 20 qhs - start atorvastatin 40 qhs given c/f stroke and elevated triglycerides on lipid panel Dispo:tele, pending mri brain Diet: carb consistent Bowel Reg: docusate prn VTE ppx: scd GI ppx: not indicated Code status: DNR/DNI Plan discussed with Dr. Belcher, and Dr. Yudith Bennett MD PGY1
--- NOTE | 2025-04-19 13:14 | PC.PT ---
PT eval only. Patient was xI with bed mobility, transfers, and ambulation using no AD. Patient is safe to ambulate to the bathroom and in the halls with no AD and 1 family member assistance due to her decreased visual abilities. RN made aware.
--- NOTE | 2025-04-19 14:47 | PC.SS ---
Addendum entered by Mackenzie Ga 04/19/25 15:04: Rounding note: Stroke work up; MRI, ECHO, and neuro recs. pending. Discharge plan: home. Original Note: 80YO female, reason for visit: CVA RULE OUT. SS met with patient at bedside. Role and purpose of today?s contact was explained. Patient is [place] speaking. She confirmed her demographic information. Patient stated her primary medical surrogate decisionmaker is her daughter, Sadia Rizo. Patient reported she is independent with both ADL completion and ambulation as well. [facility]acy: [facility], or [facility]. PCP: [facility] providers. Unable to recall last appt. Discharge plan was discussed with patient. Patient requesting to return home when medically clear. Next of kin: Daughter Sadia Rizo [phone] Discharge plan: Home, family to transport.
[2025-04-19] MEDS: ATORVASTATIN CALCIUM 20 MG TABLET 40 MG PO (20:23)
[2025-04-19] MEDS: MELATONIN 3 MG TABLET 6 MG PO (20:29)
[2025-04-20] VITALS: BP 141/86; PULSE 62; PULSE 82; RESP 19; TEMP 36.6; O2SAT 97
--- NOTE | 2025-04-20 | XR_ITS ---
Examinations: MRI Brain without intravenous contrast. MRI brain with intravenous contrast MRA brain with intravenous contrast. MRA brain without intravenous contrast MRA neck with intravenous contrast Date and time of exam: March, 1012 hours INDICATIONS: Stroke alert April 18, 2025, onset focal neurologic deficit Technique: Multiple axial and sagittal images of the brain have been obtained Siemens high-resolution 1.5 Soledad short bore scanner is utilized. Sagittal sections, T1-weighted, TR 500, TE 14 Axial sections proton density and T2-weighted, TR 3,000, TE 34, TR 3,000, TE 91 Inversion recovery axial images, TR 9,260, TE 111, TI 2,500 Diffusion weighted images, axial sections, TR 4,800, TE 128, B value 1,000 Axial sections, ADC map, TR 4,800, TE 128. Contrast images have been obtained post intravenous 20 cc Gadolinium. T1-weighted axial and coronal images post contrast have been obtained. Angiographic images of neck and brain are obtained pre and post contrast. 3-D post processing performed, including brain, extracranial neck arterial maximum intensity projections Findings: Sell[place] is not enlarged. The optic chiasm and infundibular stalk are not remarkable. Prepontine and interpeduncular cisterns are not enlarged. No localized enlargement of the medulla or von. Fourth ventricle and cerebellar tonsils normal in position. Subacute hemorrhage is not seen. Fourth ventricle is midline. Mass in the cerebellopontine angle region is not evident. 7th and 8th nerve complexes exhibits symmetry. Globes are symmetrical with no retro-orbital mass. Increased white matter signal mild Diffusion-weighted images demonstrateno focus of restricted diffusion. Mass-effect upon the ventricular system is not identified. Abnormal contrast enhancement is noted seen. MRA brain carotid images no significant carotid stenoses, no cerebral large vessel arterial occlusions Impression: Negative for acute hemorrhage mass effect or midline shift No acute infarct Mild chronic microvascular white matter change No significant carotid stenoses No cerebral large vessel arterial occlusions
[2025-04-20 04:00] VITALS: BP 170/93; PULSE 58; PULSE 62; RESP 18; TEMP 36.6; O2SAT 94
[2025-04-20 05:35] LABS: Basophils # (Auto) 0.1 Thou/mm3 (0.0-0.2); Basophils % (Auto) 1 % (0-2.5); Eosinophils # (Auto) 0.2 Thou/mm3 (0.0-0.5); Eosinophils % (Auto) 3 % (0-10); Hematocrit 42.2 % (36.0-46.0); Hemoglobin 13.8 g/dL (12.0-16.0); Immature Granulocytes Auto 0.05 Thou/mm3 (0.00-0.00); Lymphocytes # (Auto) 1.8 Thou/mm3 (1.0-4.8); Lymphocytes % (Auto) 29 % (10-50); Mean Corpuscular HGB Conc 32.7 g/dl (31.0-37.0); Mean Corpuscular Hemoglobin 28.3 pg (25.0-35.0); Mean Corpuscular Volume 87 fL (80-100); Monocytes # (Auto) 0.7 Thou/mm3 (0.0-0.8); Monocytes % (Auto) 11 % (0-12); Neutrophils # (Auto) 3.4 Thou/mm3 (1.8-7.7); Neutrophils % (Auto) 55 % (37-80); Nucleated Red Blood Cell # 0.00 Thou/mm3 (0.00-0.00); Nucleated Red Blood Cell % 0 /100 WBC (0); Platelet Count 159 Thou/mm3 (140-440); RDW Standard Deviation 42.4 fL (36.4-46.3); Red Blood Count 4.87 Miln/mm3 (4.00-5.20); White Blood Count 6.2 Thou/mm3 (3.6-11.0)
[2025-04-20 06:00] VITALS: BMI 25.8
[2025-04-20 06:01] LABS: Alanine Aminotransferase 16 U/L (10-49); Albumin, Serum 4.2 gm/dL (3.4-4.8); Albumin/Globulin Ratio 1.6 (1.2-2.2); Alkaline Phosphatase 76 U/L (46-116); Anion Gap 7 (7-16); Aspartate Amino Transferase 17 U/L (0-34); BUN/Creatinine Ratio 18 Ratio (12-20); Bilirubin,Total 1.1 mg/dL (0.3-1.2); Blood Urea Nitrogen 11 mg/dL (9-23); Calcium 9.4 mg/dL (8.3-10.6); Calcium (Corrected) 9.4 mg/dL (8.5-10.1); Carbon Dioxide 29.9 mMol/L (20.0-31.0); Chloride 101 mMol/L (98-107); Creatinine (Component) 0.6 mg/dL (0.6-1.3); Estimated Creatinine Clearance 76.9 mL/min (>60); Globulin 2.6 gm/dL (2.3-3.5); Glucose 146 mg/dL (74-106); Magnesium 1.8 mg/dL (1.6-2.6); Osmolality,Calculated 278 (275-295); Phosphorous 4.3 mg/dL (2.4-5.1); Potassium 4.4 mMol/L (3.4-5.1); Sodium 138 mMol/L (136-145); Total Protein 6.8 gm/dL (5.7-8.2); eGFR > 60 See Note
[2025-04-20 08:00] VITALS: BP 148/94; PULSE 71; PULSE 80; RESP 20; TEMP 36.2; O2SAT 94
[2025-04-20] MEDS: Magnesium Sulfate 4 GM Ivpb 4 GM/50 ML BAG IV (08:45)
[2025-04-20] MEDS: ASPIRIN EC 81 MG TABEC PO (08:45)
[2025-04-20 12:00] VITALS: BP 140/91; PULSE 72; PULSE 73; RESP 19; TEMP 36; O2SAT 92
[2025-04-20 12:57] VITALS: BP 140/91; PULSE 72
[2025-04-20] MEDS: LOSARTAN POTASSIUM 25 MG TABLET 50 MG PO (12:57)
--- NOTE | 2025-04-20 13:30 | PC.NURSE ---
Discharge orders in place since 1126am; however Dr. Falcon states via phone, has not spoken to patient regarding MRI results and discharge plan and would be up shortly to speak with patient. Discharge on HOLD pending MD providing updates to patient. Charge Nurse Sola GALARZA made aware.
--- NOTE | 2025-04-20 15:54 | ESDS_ITS ---
<Statement entered by Sonia Zurita MD - 04/23/25 17:41> I reviewed above note and agree with findings and plans. I have also personally examined the patient with medicine team and went over assessment and plan with medical team including photography intern and resident physician. <Statement entered by Annika Belcher MD - 04/20/25 20:40> Note reviewed, I agree with most of its contents and agree with the patient's care as documented by Dr. Bennett. The patient's management plan was discussed with my attending physician Dr. Zurita. Annika Belcher, PGY-2 Planned Discharge Date 04/20/25 DS: Providers Provider Date of admission: 04/18/25 18:19 Primary care physician: Regis Uribe PA-C Admitting Provider: Sonia Zurita MD Attending Provider on Admission: Sonia Zurita MD Consults: 04/18/25 15:08 Consult to Neurology / Tele-Neurology Routine Comment: Consulting Provider: [facility] 04/18/25 18:24 Referral Speech Therapy Routine Comment: 04/18/25 18:25 Referral Physical Therapy Stat Comment: Physician Instructions: 04/18/25 18:35 Consult to Neurology / Tele-Neurology Routine Comment: stroke workup Consulting Provider: José Miguel Evans Attending Provider on DC: Sonia Zurita MD Discharging Provider: Sonia Zurita MD DS: Diagnosis Problem List Completed Was Problem List Reviewed/Reconciled?: Yes Hospital Course Hospital Course Hospital course: Hospital Course Ms. Aguilar is an 80 year old woman who has a hx of HTN and T2DM not on insulin, HLD, who presented with c/c L chest pain and dizziness associated with blurred vision and gait instability who was admitted for stroke rule out. All neuroimaging was negative for stroke or large vessel occlusion. in house neuro was consulted, who suspect PRES as the etiology of her symptoms. She was evaluated by PT, who deemed that she was independent without need for assisting devices. Patient stable and medically cleared for discharge. Discharge instructions Continue taking previous medications. Start taking aspirin 81 mg and atorvastatin 40mg daily as management in stroke prevention. Monitor your blood pressure at home. Keep a blood pressure goal of 130-140/80-90. Complete your echocardiogram outpatient. Follow up with your PCP in 1-2 weeks. Return to ED if symptoms return or worsen. Diagnoses Dizziness and ataxia PRES vs TIA vs Acute ischemic Stroke ruled out Hypertensive emergency HTN T2DM - well controlled HLD Plan discussed with Dr. Belcher, and Dr. Yudtih Bennett MD PGY1 Time Spent with Patient Time attestation: Total time spent providing and/or coordinating discharge services: Time spent: Greater than 30 minutes Exam Vital Signs Temp Pulse Resp BP Pulse Ox O2 Del Method 96.8 F 72 19 140/91 H 92 L Room Air 04/20/25 12:00 04/20/25 12:57 04/20/25 12:00 04/20/25 12:57 04/20/25 12:00 04/20/25 12:00 Narrative Exam GENERAL: no acute distress, AAO x3, sitting comfortably in chair HEENT: Head AT/ NC. Mucous membranes moist. PERRL. NECK: Supple, no lymphadenopathy, no carotid bruits. CARDIOVASCULAR: RRR. Normal S1/S2, No m/r/g. No pitting edema of bilateral LEs. RESPIRATORY: CTAB. No wheezing, rhonchi, crackles. GASTROINTESTINAL: Abdomen soft, non tender no palpable masses. Bowel sounds present MUSCULOSKELETAL:? No cyanosis or edema, no visible joint swelling. NEUROLOGICAL: CN II-XII grossly intact. No focal deficits. Sensation intact, symmetric., nl finger nose finger, nl heel knee vernon. gait was assessed by pt, independent without AD 5/5 strength in upper and lower extremities. PSYCHIATRIC: Awake and alert, not agitated, normal mood and affect. SKIN: No obvious rashes, no jaundice, normal turgor. Discharge Plan Plan Patient Disposition: HOME (Self Care) Patient condition on transfer: Stable Prescriptions/Referrals Prescriptions/Med Rec: New aspirin 81 mg Tablet,Delayed Release (Dr/Ec) 81 mg PO DAILY Qty: 30 0RF atorvastatin 40 mg tablet 40 mg PO QDAY Qty: 30 0RF Continued losartan 50 mg Tablet 50 mg PO QDAY latanoprost [Xalatan] 0.005 % Drops 1 drp OPHTHALMIC (EYE) QDAY metformin 500 mg Tablet Extended Release 24 Hr 500 mg PO BID hydroxyzine HCl 25 mg Tablet 25 mg PO HS metformin 850 mg tablet 850 mg PO .WITH MEALS Discontinued atorvastatin 20 mg Tablet 20 mg PO QPM Referrals: Uribe,Kirill, PA-C [Primary Care Provider] Outpatient Orders (i.e. Home Health, Labs, Imaging): [place] echo doppler complete (Routine) Location: Determined by Patient Ordered By: Annika Belcher Patient/Caregiver Discharge Instructions Other Discharge Activity Instructions:: Continue taking previous medications. Start taking aspirin 81 mg and atorvastatin 40mg daily as management in stroke prevention. Monitor your blood pressure at home. Keep a blood pressure goal of 130-140/80-90. Complete your echocardiogram outpatient. Follow up with your PCP in 1-2 weeks. Return to ED if symptoms return or worsen. Instrucciones m?dicas: Contin?e tomando los medicamentos previos. Comience a tiffanie aspirina 81 mg y atorvastatina 40 mg diariamente mckayla tratamiento para la prevenci?n de un derrame cerebral. Controle askew presi?n arterial en casa. Mantenga gil meta de presi?n arterial de 130-140/80-90. Complete askew ecocardiograma en consulta externa. Eladia un seguimiento con askew m?dico de atenci?n primaria (PCP) en 1-2 semanas. Regrese a la talon de urgencias si los s?ntomas regresan o empeoran. Education Materials: Checking Your Own Blood Pressure, Diabetes and High Blood Pressure Print Language: Setswana Stand Alone Forms: [employer] Award Info., Patient Portal Info Letter Discharge Order Discharge Orders: Discharge (Routine); Ordered 04/20/25 Ordered By: Annika Belcher Quality Discharge Quality Measures VTE prophylaxis
[2025-04-20 16:00] VITALS: BP 131/89; PULSE 72; PULSE 82; RESP 19; TEMP 36.4; O2SAT 96
== END 2025-04-20 16:32 | disposition home or self-care (01) | DRG 199 ==
LOC: SERX 17:36 → SERHOLD 18:35 → S2NX 20:05
PROVIDERS: Nurse Practitioner Family; Admitting Provider Internal Medicine; Emergency Provider Family Medicine; PCP Physician Assistant Medical; Visit Provider Internal Medicine
DX: I16.1 Hypertensive emergency (principal); R27.0 Ataxia, unspecified; I10 Essential (primary) hypertension; E11.9 Type 2 diabetes mellitus without complications; R79.89 Other specified abnormal findings of blood chemistry; E78.1 Pure hyperglyceridemia; Z66 Do not resuscitate; Z79.82 Long term (current) use of aspirin; Z79.84 Long term (current) use of oral hypoglycemic drugs; Z79.899 Other long term (current) drug therapy
CPT/HCPCS: 36415; 70450; 70496; 70498; 70553; 71045; 80053; 80061; 80307; 81001; 83036; 83735; 84100; 84443; 84484; 84703; 85025; 85610; 85730; 92610; 93005; 93306; 96374; 97162; 99285; A4649; A9577; J3475; J3490; Q9967; A9270; J1920